=== PATIENT | male | born 1950 | race Caucasian/White ===

== ENCOUNTER 2016-08-18 17:15 | Observation (INO) | payer MEDICARE, OTHER ==
[~2016-08-18] VITALS: Ht 175.3 cm; Wt 80.0 kg
--- NOTE | 2016-08-18 18:10 | NUR ---
Admission Pt arrived on [facility] to rm [id number] from [facility] as a direct admit. A/Ox3, IV saline locked, patent and non tender. NO complains of chest discomfort/pressure at this time. Sating 94% on RA. Pt able to transfer self from wheelchair to bed, steady gait observed. Oriented to pt guide, call light in reach, will continue to monitor.
[2016-08-18 18:26] VITALS: BP 127/70; PULSE 57; RESP 16; O2SAT 93
[2016-08-18 18:30] VITALS: PULSE 58
[2016-08-18 20:00] VITALS: PULSE 59
[2016-08-18] MEDS ORDERED: Ondansetron 2 mg/mL 2 mL Inj IVPUSH PRN (20:30)
[2016-08-18] MEDS ORDERED: Polyethylene Glycol (PEG) 17 Gm Powder PO PRN (20:30)
[2016-08-18] MEDS ORDERED: Alum-Mag Hydrox-Simeth 30 mL Suspension PO PRN (20:30)
[2016-08-18] MEDS ORDERED: Senna-Docusate 8.6-50 mg Tablet PO PRN (20:30)
[2016-08-18] MEDS ORDERED: LAMO150T2 PO (20:33)
[2016-08-18] MEDS ORDERED: LISI10TA PO (20:33)
[2016-08-18] MEDS ORDERED: LEVE10006 PO (20:33)
[2016-08-18] MEDS ORDERED: LEVE250T4 PO (20:33)
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
[2016-08-18] MEDS: Nitroglycerin 2% 1 Gm Ointment TOPICAL SCH (22:12)
[2016-08-18] MEDS: 0.9% Sodium Chloride 1,000 ML IV SCH (22:12)
[2016-08-18 23:01] VITALS: BP 109/63; PULSE 57; RESP 18; O2SAT 98
[2016-08-18 23:09] LABS: Creatine Kinase 90 U/L (21-232); Magnesium 2.2 mg/dL (1.6-2.6)
[2016-08-18] MEDS: levETIRAcetam 500 mg Tablet PO SCH (23:37)
[2016-08-18] MEDS: lamoTRIgine 100 mg Tablet PO SCH (23:38)
[2016-08-19] MEDS: Heparin 5,000 Unit/mL Inj SUBQ SCH ×2 (00:21→07:53)
[2016-08-19] MEDS: Sodium Chloride LOK Flush 10 mL Syringe IVFLUSH SCH ×2 (00:21→07:52)
[2016-08-19 00:37] VITALS: BP 107/68; PULSE 56; RESP 18; O2SAT 94
[2016-08-19] MEDS: Nitroglycerin 2% 1 Gm Ointment TOPICAL SCH ×3 (02:30→13:50)
[2016-08-19 02:48] LABS: Creatine Kinase 83 U/L (21-232)
--- NOTE | 2016-08-19 04:19 | NUR ---
NOC Nitro patch removed 418. Pt denies chest pain or chest discomfort. Denies sob, n/v or abd discomfort. Telemetry monitoring no abnormal rhythm. Pt has been NPO since midnight. Explained the plan of care to the pt and family. Provide health teaching about balance diet and exercise also about lifestyle changes that could contribute to the pt's symptoms. Provide angina booklet. IVF running on 80ml/hr. HS meds administered. Hourly rounding in effect.
[2016-08-19 04:36] VITALS: BP 117/63; PULSE 56; RESP 18; O2SAT 94
[2016-08-19 06:38] LABS: BASOPHILS % (AUTO) 0.5 % (0-3); EOSINOPHILS % (AUTO) 4.3 % (0-5); MONOCYTES % (AUTO) 8.2 % (4-12); Mean Corpuscular Hemoglobin 28.9 pg (27.0-35.0); Mean Corpuscular Volume 85.8 fL (81-100); NEUTROPHILS % (AUTO) 38.8 % (40-74); Platelet Count 380 bil/L (150-400)
--- NOTE | 2016-08-19 08:07 | NUR ---
Stress Test Escorted to stress test via transport and w/c with pants and shoes. RA JOSE LUIS. Addendum: 08/19/16 at 1057 by GIANLUCA LEDESMA RN Returned to floor, Tele applied, Provider assessed and Echo in room at this time.
[2016-08-19] MEDS ORDERED: levETIRAcetam 500 mg Tablet PO SCH (08:30)
[2016-08-19] MEDS ORDERED: lamoTRIgine 100 mg Tablet PO SCH (08:30)
[2016-08-19 10:30] VITALS: BP 134/71; PULSE 81; RESP 18; O2SAT 92
[2016-08-19 10:48] VITALS: PULSE 70
--- NOTE | 2016-08-19 11:19 | NUR ---
Social Work-multidisciplinary rounds: Per MD, Pt to stress test today and if this is negative pt will discharge home. SW to complete assessment today. Dora Pak MSW
[2016-08-19] MEDS: lamoTRIgine 100 mg Tablet PO SCH (11:36)
[2016-08-19] MEDS: levETIRAcetam 500 mg Tablet PO SCH (11:36)
--- NOTE | 2016-08-19 11:38 | NUR ---
Case Management: RUDOLPH and Medicare Part D pamphlet delivered and explained to patient. Signed original placed in chart. Copy left at bedside. Karina Thomas RN
[2016-08-19] MEDS: 0.9% Sodium Chloride 1,000 ML IV SCH (11:39)
--- NOTE | 2016-08-19 14:13 | DRSVH ---
[facility] [address] [place] [address] Echocardiogram Report Name: JUNO SRIVASTAVA LStudy Date: 08/19/2016 Height: 69 in Hospital Exam Location: [facility] Weight: 176 lb Gender: Male BSA: 2.0 m2 : 1950 Age: 65 yrs BP: 117/63 mmHg Reason For Study: Chest pain Ordering Physician: Performed By: Ellen David Referring Physician: Ibrahima Moya Interpretation Summary 1) Normal left ventricular thickness, size, wall motion, and systolic function (EF 60-65%). 2) Normal right ventricular size and function. 3) No significant valvular abnormalities. 4) No prior Echo available for comparison. Procedure: A two-dimensional transthoracic echocardiogram with color flow and Doppler was performed. The study quality was technically adequate. There is no prior echocardiogram noted for this patient. The patient was in normal sinus rhythm during the exam. Left Ventricle: The left ventricle is normal in size, wall thickness, and systolic function without any focal wall motion abnormalities. The ejection fraction is estimated to be 60-65%. Assessment of diastolic parameters indicates a relaxation abnormality of the left ventricle, consistent with normal filling pressures. Right Ventricle: The right ventricle is normal in size, thickness and function. Atria: The left atrium is moderately dilated. The right atrium is mildly dilated. The interatrial septum is intact with no evidence for an atrial septal defect. Mitral Valve: The mitral valve is normal in structure and function. There is trace mitral regurgitation. Aortic Valve: The aortic valve is trileaflet. The aortic valve opens well. There is no aortic valve stenosis. No aortic regurgitation is present. Tricuspid Valve: The tricuspid valve leaflets are thin and pliable. There is trace tricuspid regurgitation. The right ventricular systolic pressure is estimated at 25 mmHg assuming a right atrial pressure of 3 mm Hg. Pulmonic Valve: The pulmonic valve is normal in structure and function. There is no pulmonic valvular regurgitation. Great Vessels: The aortic root is normal size. The dimensions of the ascending aorta are normal. The IVC is of normal diameter and collapses greater than 50% with a sniff. This suggests a low right atrial pressure of 3 mm Hg. Pericardium/ Pleura There is a trivial pericardial effusion noted. There is no pleural effusion. MMode/2D Measurements & Calculations LVIDd: 5.5 cm LA dimension: 4.5 cm RA long axis Ao root diam LVIDs: 3.3 cm FS: 40.2 % LA A2 area: 24.8 cm RA area Aortic Jxn: 3.0 cm IVSd: 0.92 cm LA A4 area: 26.3 cm asc Aorta Diam LVPWd: 0.79 cm LA length (vol) : 21.6 cm RA vol Ao Arch Diam (Prox LA vol: 83.7 ml : 73.9 ml Trans): 3.0 cm LA vol index RA : 37.8 mm/ RVDd major IVC diam: 2.0 cm : 7.2 cm LV funes. diameter/BSA LV sys. diameter/BSA RVD1 (basal) RVD2 (mid): 3.5 cm (cm/m^2): 2.8 (cm/m^2): 1.7 Doppler Measurements & Calculations Ao V2 max MV E max monster MV E/A: 1.0 TR max monster : 114.3 cm/sec : 52.4 cm/sec Med Peak E' Monster : 235.2 cm/sec Ao max PG MV A max monster TR max PG : 5.2 mmHg : 50.0 cm/sec E/E' med: 8.7 : 22.1 mmHg Ao mean PG MV P1/2t: 60.9 msec Lat Peak E' Monster PA V2 max : 2.5 mmHg : 98.2 cm/sec E/E' lat: 6.6 PA mean PG E/e' average: 7.7 PA Accel Time : 0.12 sec MV dec time MV P1/2t max monster Ao V2 mean PA V2 mean : 0.21 sec : 72.5 cm/sec : 60.5 cm/sec MVA(P1/2t): 3.6 cm2 Ao V2 VTI: 24.1 cm Reading Physician:02:12 PM
--- NOTE | 2016-08-19 14:34 | DRSVH ---
Caution: Report not yet finalized and possibly incomplete! PROCEDURE: ONE DAY TREADMILL STRESS TEST REFERRING PROVIDER: Dr. Bowen PRIMARY CARE PHYSICIAN: Dr. Dale INDICATIONS: Mr. Cummins is a 65-year-old gentleman admitted to the hospital with symptoms of left precordial chest discomfort. Nuclear cardiac stress study is performed to exclude underlying ischem ic heart disease. COMPARISON: None. STRESS TEST: This gentleman was exercised on a regular Jesus protocol for a total time of 13 minutes and 19 seconds, achieving an exercise capacity 50% to 60% better than expected for an active male hi s age. He achieved a peak heart rate of 153 beats per minute, or 98% of his maximum predicted heart rate with no symptoms of chest discomfort and no diagnostic EKG changes of ischemia. Baseline 12-scottie d EKG is normal. The patient had no significant dysrhythmias associated with exercise. PROCEDURE: This gentleman received 8.3 mCi of technetium-99 tetrofosmin for the resting exam. Follo wing stress, he received an additional 25.5 mCi. FINDINGS: 1. Raw Data: Raw data imaging demonstrates overall good image quality. No significant source of ar tifact or interference is noted. 2. Quantitative Gated SPECT Imaging: Gated images show a normal-size left ventricular volume estima vicky at 83 cc. The ejection fraction is estimated at 76% with no regional wall motion abnormalities i dentified. 3. Quantitative Perfusion SPECT Imaging: Myocardial perfusion SPECT imaging shows a normal distribu tion of radioisotope throughout the myocardium. Stress and rest perfusion images show a modest amoun t of diaphragmatic attenuation, which is eliminated with prone imaging. IMPRESSION: 1. Normal nuclear cardiac stress study. DISCUSSION: Nuclear cardiac stress study suggests a low likelihood for the presence of significant u nderlying obstructive coronary artery disease. Dictated by: Frank Farrar M.D. on 08/19/2016 at 12:24 Transcribed by: CHARLOTTE on 08/19/2016 at 17:33
[2016-08-19 14:41] VITALS: BP 110/65; PULSE 75; RESP 18; O2SAT 91
--- NOTE | 2016-08-19 14:58 | PCM.DIMED ---
Discharge Instructions Date of Service Aug 19, 2016 Dates of Hospitalization Aug 18, 2016 at 18:18 Discharge Diagnosis Discharge Diagnosis # Acute chest pain, present on admission. Resolved - Ruled out for myocardial infarction and with negative cardiac workup including "normal nuclear cardiac stress study" and unremarkable echocardiogram # History of hypertension. Stable # History of seizure disorder. Stable Medication Instructions Additional med instructions Resume home medications as before Diet Discharge Diet: Low fat, Low Sodium, Heart Healthy Activity Discharge Activity: No restrictions Call your provider Call your provider for: Fever or Chills, Shortness of breath, Chest pain, Vomitting Patient Instructions Patient Instructions Seek immediate medical attention if any new or worsening signs or symptoms occur. Follow-up plan 1. Followup with primary care provider in 3-7 days Follow-up Provider: Ibrahima Moya MD, Masoud Aug 19, 2016 14:58
--- NOTE | 2016-08-19 15:25 | PCM.DC.MED ---
Discharge Summary Date of Service Aug 19, 2016 Dates of Hospitalization Date of Hospital Admission Aug 18, 2016 at 18:18 Date of Discharge: Aug 19, 2016 Providers: Admitting Physician: Aparna Gramajo DO Primary Care Physician: Ibrahima Moya MD Attending Physician: Pepe Mayfield Diagnosis at Time of Discharge Diagnosis at Time of Discharge # Acute chest pain, present on admission. Resolved - Ruled out for myocardial infarction and with negative cardiac workup including "normal nuclear cardiac stress study" and unremarkable echocardiogram # History of hypertension. Stable # History of seizure disorder. Stable Procedures Cardiac Echo Impression Date of Service: 08/19/16 0800 Echocardiogram Report Interpretation Summary 1) Normal left ventricular thickness, size, wall motion, and systolic function (EF 60-65%). 2) Normal right ventricular size and function. 3) No significant valvular abnormalities. 4) No prior Echo available for comparison. Reading Physician:02:12 PM Other Diagnostics Date of Service: 08/19/16 0500 PROCEDURE: ONE DAY TREADMILL STRESS TEST IMPRESSION: 1. Normal nuclear cardiac stress study. DISCUSSION: Nuclear cardiac stress study suggests a low likelihood for the presence of significant underlying obstructive coronary artery disease. Dictated by: Frank Farrar M.D. on 08/19/2016 at 12:24 Transcribed by: CHARLOTTE on 08/19/2016 at 17:33 Brief History As noted in H&P by Dr. Bowen: Kiko Cummins is a 65-year-old bed with past medical history significant for seizure disorder and hypertension who presented to the [facility] emergency department due to left-sided chest pain onset early this morning. The patient notes a dull ache in the left side of his chest that was moderate in severity but was reduced with administration of nitroglycerin. He denies any left arm pain back pain or jaw pain. He denies any diaphoresis, palpitations, shortness of breath, nausea, vomiting, or claudication. She has never had a prior stress test or cardiac workup of any kind. He denies any past history significant for coronary artery disease or MIs. She denies any orthopnea, paroxysmal nocturnal dyspnea, extremity edema. He is a former smoker. At [facility] patient had 2 negative troponins. EKG was remarkable for an old septal infarct but was otherwise in normal sinus rhythm without ST changes. CBC and BMP were both unremarkable. Currently the patient has some mild chest pain. Hospital Course # Acute chest pain, present on admission. Resolved - Ruled out for myocardial infarction and with negative cardiac workup including "normal nuclear cardiac stress study" and unremarkable echocardiogram as noted above # Hypertension. Stable - Continued lisinopril # Seizure disorder. Stable -Continued Keppra and Lamictal Exam Vital Signs (Last) Date Time Temp Pulse Resp B/P Pulse Ox O2 Delivery O2 Flow Rate FiO2 08/19/16 14:41 37.0 75 18 110/65 91 Room Air Exam Lungs CTA bilaterally CV: RRR Test 08/18/16 21:10 08/19/16 02:00 08/19/16 02:30 08/19/16 05:31 Hemoglobin A1c 5.8% (4.8-5.6) Magnesium Level 2.2mg/dL (1.6-2.6) Thyroid Stimulating Hormone (TSH) 1.620uIU/mL (0.450-4.500) Hold Cuevas Top Tube Received (Received) Total Creatine Kinase 83U/L (21-232) Creatine Kinase MB 2.4ng/mL (0.0-10.4) Creatine Kinase MB % % (0.0-5.0) Troponin T 0.010ug/L (0.0-0.011) Hold Urine Received (Received) White Blood Count 8.6th/mm3 (3.8-10.1) Red Blood Count 4.99mil/mm3 (4.40-5.80) Hemoglobin 14.4g/dL (13.8-17.2) Hematocrit 42.8% (41.0-50.0) Mean Corpuscular Volume 85.8fL (81-100) Mean Corpuscular Hemoglobin 28.9pg (27.0-35.0) Mean Corpuscular Hemoglobin Concent 33.6% (32.0-37.0) Red Cell Distribution Width 14.0% (12.3-15.4) Platelet Count 380bil/L (150-400) Neutrophils (%) (Auto) 38.8% (40-74) Lymphocytes (%) (Auto) 48.1% (14-46) Monocytes (%) (Auto) 8.2% (4-12) Eosinophils (%) (Auto) 4.3% (0-5) Basophils (%) (Auto) 0.5% (0-3) Sodium Level 140mEq/L (134-144) Potassium Level 4.6mEq/L (3.5-5.2) Chloride Level 103mEq/L (97-108) Carbon Dioxide Level 23mmol/L (18-29) Blood Urea Nitrogen 15mg/dL (8-27) Creatinine 0.80mg/dL (0.76-1.27) Estimat Glomerular Filtration Rate 103mL/min (>59) Glucose Level 91mg/dL (60-99) Calcium Level 9.4mg/dL (8.5-10.1) Triglycerides Level 119mg/dL (0-149) Cholesterol Level 198mg/dL (100-199) LDL Cholesterol, Calculated 129.200mg/dL (0-99) VLDL Cholesterol 23.800mg/dL HDL Cholesterol 45mg/dL (>39) Cholesterol/HDL Ratio 4.40 (0.0-4.4) Discharge Medications Discharge Medications Lamotrigine (Lamotrigine) 150 Mg Tablet 300 MG PO BID (Reported) Levetiracetam (Levetiracetam) 1,000 Mg Tablet 1,000 MG PO BID (Reported) Levetiracetam (Levetiracetam) 250 Mg Tablet 250 MG PO BID (Reported) Lisinopril (Lisinopril) 10 Mg Tablet 5 MG PO DAILY (Reported) Additional med instructions Resume home medications as before Followup Plan Disposition: Home Follow-up plan 1. Followup with primary care provider in 3-7 days Discharge Diet: Low fat, Low Sodium, Heart Healthy Discharge Activity: No restrictions Patient Instructions Seek immediate medical attention if any new or worsening signs or symptoms occur. Follow-up Provider: Ibrahima Moya MD Time spent 30 min copies to: Ibrahima Moya MD, Masoud Aug 19, 2016 15:25
--- NOTE | 2016-08-19 15:26 | NUR ---
Social Work-initial assessment/discharge: Data:See initial assessment.Pt is a 65 y/o male who was admitted on 08/18/16 for chest pain per H&P. Pt's insurance is [facility] and [employer] [place] and PCP is Ibrahima Moya MD. EMR Reviewed. Pt's readmission score is 1. SW met with pt and at bedside, SW role explained. Pt is medically stable for discharge. Pt resides at home with his in [place] where he remains independent with ADLs. Pt drives and does not use any DME. Pt has no HH Or SNF history. 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 Pt has not completed DPOA/ advanced directive paperwork, SW provided them with a copy. SW provided them with discharge planning checklist booklet and encouraged them to call with any questions. Phone number provided on white board. Pt's to provide transport home. No discharge needs identified. All updated and agreeable to plan. Assessment:Pt who is independent at baseline. Plan:Pt to discharge home today via POV. No discharge needs identified. All updated and agreeable to plan. JADE Garcia Addendum: 08/19/16 at 1543 by DAVINA GARZA Amended: Links added.
--- NOTE | 2016-08-19 16:14 | NUR ---
Discharge D/c to home. D/C instructions discussed and provided. No further questions at this time. Pt requested to ambulate off and left with all belongings in no sign of distress.
== END 2016-08-19 06:10 | disposition home or self-care (01) ==
LOC: MPC 18:18
PROVIDERS: ADMIT Internal Medicine; ATTEND Internal Medicine
DX: R07.9 Chest pain, unspecified (principal); I10 Essential (primary) hypertension; G40.909 Epilepsy, unspecified, not intractable, without status epilepticus; F17.210 Nicotine dependence, cigarettes, uncomplicated
CPT/HCPCS: 36415; 78452; 80048; 80061; 82550; 82553; 83036; 83735; 84443; 84484; 85025; 93017; A9502; C8929; G0378; J1644; J7030